=== PATIENT | male | born 1995 | race Caucasian/White ===

== ENCOUNTER 2019-02-13 11:25 | Day surgery (SDC) | payer BC ==
[2019-02-12 18:34] VITALS: BMI 21.9
[2019-02-13] MEDS ORDERED: BUPIVACAINE HCL/PF 0.25% (2.5MG/ML) 10 ML VIAL ONE (13:24)
[2019-02-13] MEDS ORDERED: MIDAZOLAM HCL 2 MG/2 ML SINGLE DOSE VIAL ONE ×2 (13:27)
[2019-02-13] MEDS ORDERED: PROPOFOL 20 ML ONE ×3 (13:27→14:07)
[2019-02-13] MEDS ORDERED: MORPHINE SULFATE 2 MG/ML VIAL IVPUSH PRN (13:30)
[2019-02-13] MEDS ORDERED: LACTATED RINGERS SOLUTION 1,000 ML IV SCH (13:30)
[2019-02-13] MEDS ORDERED: ceFAZolin 2 GRAM PREMIX BAG IVPB ONE (13:40)
[2019-02-13] MEDS ORDERED: BACITRACIN 15 GM TUBE TOPICAL OINTMENT ONE (13:45)
[2019-02-13] MEDS ORDERED: HYDROmorphone HCl 2 MG/ML VIAL ONE (13:50)
[2019-02-13] MEDS ORDERED: BUPIVACAINE HCL/PF 2.5 MG/ML - 30 ML VIAL IJ ONE ×2 (14:00)
[2019-02-13] MEDS ORDERED: BACITRACIN 15 GM TUBE TOPICAL OINTMENT TP ONE (14:00)
--- NOTE | 2019-02-13 15:00 | OP ---
Operative Note - Note: Operative Date: 02/13/19 Pre-Operative Diagnosis: penile hematoma Operation: evacuation of penile hematoma Findings: large mid-shaft hematoma Post-Operative Diagnosis: Same as Pre-op Surgeon: Elizabeth Michel Anesthesia: General Specimens Removed: old blood clots Estimated Blood Loss (mls): 100 Drains, Volume Out (mls): 0 Blood Volume Replaced (mls): 0 Fluid Volume Replaced (mls): 0 Operative Report Dictated: Yes
[2019-02-13 18:21] VITALS: TEMP 98
--- NOTE | 2019-02-13 18:26 | CONS ---
DATE OF CONSULTATION: DATE OF DICTATION: 02/13/2019 HISTORY OF PRESENT ILLNESS: The patient is a 23-year-old male admitted to ambulatory surgery for evacuation of a penile hematoma. Patient has been undergoing treatment for Peyronie's disease in the office. He is receiving Xiaflex injections with modeling and straightening of the penile shaft. After the 2nd treatment, the patient developed a large mid shaft hematoma. This was one week earlier. The hematoma is organized and appears to be solidified in the midshaft of the penis, encompassing the entire circumference of the penile shaft with a length of 6 cm and a height of 3 cm. He denies any voiding problems. The hematoma commenced on January 26, 2019, after he was performing penile rehabilitation by straightening the penis. He denies any past medical or surgical history. Denies any allergies, ethanolism, or tobacco. There is a history of possible ulcerative colitis. He has undergone a colonoscopy in the past. He denies tobacco use but does smoke marijuana. PHYSICAL EXAMINATION: General: A well developed adult male in no apparent distress. Head, Eyes, Ears, Nose and Throat: Within normal limits. Neck: Supple, no masses. Chest: Clear to auscultation, percussion. Abdomen: Soft. No CVA tenderness. Genitalia: Revealed a circumcised adult male. Testes are normal in size and consistency. No hernias or hydroceles were evident. Penile shaft revealed an organized hematoma in the mid shaft of the penis encompassing the entire circumference. Meatus is adequate. Prostate is flat and nontender. Extremities: Reveal full range of motion with no cyanosis, clubbing, or edema. IMPRESSION: Penile hematoma, organized. PLAN: Evacuation of hematoma. Patient was described the procedure and the possible side effects including impotence and continuation of Peyronie's disease, and he agrees. Jah [id number]
[2019-02-13 18:44] VITALS: BP 100/54; PULSE 75
--- NOTE | 2019-02-16 15:52 | OP ---
DATE OF OPERATION: 02/13/2019 PREOPERATIVE DIAGNOSIS: Penile hematoma. POSTOPERATIVE DIAGNOSIS: Penile hematoma. OPERATIVE PROCEDURE: Penile degloving and evacuation of hematoma and placement of a Reginaldo drain. ANESTHESIA: General and local Marcaine block. ESTIMATED BLOOD LOSS: 100 mL DESCRIPTION OF PROCEDURE: Under above stated anesthesia, patient was prepped and draped in the usual sterile manner. He is placed in the supine position. The base of the penis was infiltrated with 10 mL of 0.25% Marcaine. A circumferential incision was made below the viera of the penis; using both blunt and sharp dissection, the entire shaft was degloved. A large hematoma in the mid shaft of the penis was encountered. Using sharp dissection, the entire hematoma which has a capsule was excised off the shaft. Hemostasis was secured with electrocoagulation. Neurovascular bundle was seen and pushed out of operative site. body appeared to reveal fibrosis indicative of Peyronie disease. A 1/4-inch Hundred was left over the shaft of the penis. The skin from the glands was then approximated to skin from the shaft using 4-0 chromic suture ligatures. The Hundred drain was brought out a separate stab wound incision at the base of the penis. Pressure dressing was applied. A 16 Stateless Teixeira was placed in the urethra and connected to a leg bag. The patient tolerated the procedure well. He returned to the recovery room in good condition. MEGAN VALENTIN M.D. [id number]
--- NOTE | 2019-02-17 17:25 | PATH ---
Surgical Pathology Report Patient Name: CAROLYN CARSON Med. Rec. #: [id number] /Age/Gender: 1995 (Age: 23) / M Account: [id number] Location: [facility] SURGICAL Taken: 02/13/2019 Received: 02/16/2019 Reported: 02/17/2019 Physicians: Elizabeth Michel M.D. Specimen(s) Received PENILE HEMATOMA Clinical History Penile hematoma Final Diagnosis PENILE HEMATOMA, EXCISION: PORTIONS OF FIBROCONNECTIVE TISSUE SHOWING RECENT AND OLD HEMORRHAGE WITH HISTIOCYTIC REACTION, CHRONIC INFLAMMATION, AND GRANULATION TISSUE FORMATION. Electronically Signed Jet Godfrey M.D. Gross Description Received in formalin labeled "penile hematoma," is a 3.7 x 2.5 x 0.7 cm yung-keyes portion of fibromembranous tissue with attached blood clot. Bilingual Instructor sections are submitted in 2 cassettes. DL/02/16/2019 saudi/02/16/2019
== END 2019-02-13 18:15 | disposition home or self-care (01) ==
LOC: JASU-SURG 11:25
PROVIDERS: ATTEND Urology
PROC: 0V9 Male Reproductive System, Drainage (ICD-10-PCS; principal; 2019-02-13 13:00)
DX: N48.89 Other specified disorders of penis (principal)
CPT/HCPCS: 88305-TC; 94760